=== PATIENT | female | born 1985 | race Caucasian/White ===

== ENCOUNTER 2019-05-14 22:44 | Emergency (ER) | payer MEDICAID, OTHER ==
[2019-05-14] MEDS ORDERED: Sodium Chloride 0.9% 1,000 ML IV ONE (23:18)
[2019-05-14] MEDS ORDERED: Promethazine 12.5 MG in Sodium Chloride 0.9% 50 ML IV STA (23:19)
--- NOTE | 2019-05-14 23:25 | EDM.PDOC ---
ED HPI GENERAL MEDICAL PROBLEM - General Chief Complaint: General Stated Complaint: WALKER Time Seen by Provider: 05/14/19 23:18 Source of Information: Reports: Patient History Limitations: Reports: No Limitations - History of Present Illness INITIAL COMMENTS - FREE TEXT/NARRATIVE: This patient is a 33 year old female that presents to the ER. Patient reports that she is about 6-8 weeks confirmed by blood work by PCP. Patient reports that since last night she has had a headache. Patient reports having bilateral temporal pain that wraps around to the back of the neck. Patient reports that if she takes big deep breaths or coughs, or moves that her head hurts worse. She reports that she took Tylenol at home today and it took pain down some, but not much. She reports that she had a history of migraines when younger, but none since. Patient reports though this does not feel like migraines she had before. She reports with her migraines she got nauseated, vomited, and had to lay down. Patient reports that with this headache she does not have nausea, vomiting, photophobia, phonophobia, and does not describe aura. The patient is alert and oriented. She denies having nec stiffness, cp, soa, abd pain, urinary changes, bowel changes, rashes. Patient denies unilateral weaknesses, dizziness, lightheadedness, confusion. Patient does report for several months having several episodes of dull headaches that she takes Tylenol for at home. Onset: Gradual Onset Date: 05/13/19 Duration: Day(s): (1), Constant Location: Reports: Head, Neck Quality: Reports: Dull, Pressure Severity: Moderate Improves with: Reports: None Worsens with: Reports: None Associated Symptoms: Reports: Headaches. 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 Denies: Vision Change Respiratory: Reports: No Symptoms Cardiovascular: Reports: No Symptoms Endocrine: Reports: No Symptoms GI/Abdominal: Reports: No Symptoms. Denies: Nausea, Vomiting : Reports: No Symptoms Musculoskeletal: Reports: Neck Pain Skin: Reports: No Symptoms Neurological: Reports: Headache. Denies: Confusion, Dizziness, Numbness, Pre- Existing Deficit, Seizure, Syncope, Tingling, Tremors, Trouble Speaking, Difficulty Walking, Weakness, Change in Speech, Gait Disturbance Psychiatric: Reports: No Symptoms Hematologic/Lymphatic: Reports: No Symptoms Immunologic: Reports: No Symptoms ED EXAM, GENERAL - Physical Exam Exam: See Below Exam Limited By: No Limitations General Appearance: Alert, WD/WN, No Apparent Distress Eye Exam: Bilateral Eye: EOMI, PERRL Ears: Normal External Exam, Normal Canal, Hearing Grossly Normal, Normal TMs Ear Exam: Bilateral Ear: Auricle Normal, Canal Normal, TM normal Nose: Normal Inspection, Normal Mucosa, No Blood Throat/Mouth: Normal Inspection, Normal Lips, Normal Teeth, Normal Gums, Normal Oropharynx, Normal Voice, No Airway Compromise Head: Atraumatic, Normocephalic Neck: Normal Inspection, Supple, Non-Tender, Full Range of Motion Respiratory/Chest: No Respiratory Distress, Lungs Clear, Normal Breath Sounds, No Accessory Muscle Use Cardiovascular: Normal Peripheral Pulses, Regular Rate, Rhythm, No Edema, No Gallop, No JVD, No Murmur, No Rub Peripheral Pulses: 2+: Radial (L), Radial (R), Posterior Tibial (L), Posterior Tibial (R) GI/Abdominal: Normal Bowel Sounds, Soft, Non-Tender, No Organomegaly, No Distention, No Abnormal Bruit, No Mass, Pelvis Stable (Female) Exam: Deferred Rectal (Female) Exam: Deferred Back Exam: Normal Inspection, Full Range of Motion Extremities: Normal Inspection, Normal Range of Motion, Non-Tender, No Pedal Edema, Normal Capillary Refill Neurological: Alert, Oriented, CN II-XII Intact, Normal Cognition, Normal Gait, No Motor/Sensory Deficits, Other (Negative Kernigs Sign, Negative Brudzinski Sign. No nuchal rigity. ). No: Confused, Disoriented, Slow to Respond, Unresponsive, Memory Loss Remote Events, Memory Loss Recent Events, Abnormal Gait, Sensory/Motor Deficit Psychiatric: Normal Affect, Normal Mood Skin Exam: Warm, Dry, Intact, Normal Color, No Rash Lymphatic: No Adenopathy Course - Vital Signs Last Recorded V/S: Last Vital Signs Temp 97.2 F 05/14/19 22:51 Pulse 79 05/14/19 22:51 Resp 18 05/14/19 22:51 BP 116/62 05/14/19 22:51 Pulse Ox 98 05/14/19 22:51 - Orders/Labs/Meds Orders: Active Orders 24 hr Category Date Time Status Oxygen Therapy [RC] ASDIRECTED Care 05/14/19 23:20 Active Sodium Chloride 0.9% [Normal Saline] 1,000 ml Med 05/14/19 23:18 Active IV .BOLUS Medication Orders Sodium Chloride (Normal Saline) 1,000 mls @ 1,000 mls/hr IV .BOLUS ONE Stop: 05/15/19 00:17 Last Admin: 05/14/19 23:34 Dose: 1,000 mls/hr Labs: Laboratory Tests 05/14/19 Range/Units 23:20 Urine Color Light yellow (YELLOW) Urine Appearance Slightly cloudy (CLEAR) Urine pH 7.0 (4.5-8.0) Ur Specific [place] 1.015 (1.003-1.020) Urine Protein Negative (NEGATIVE) mg/dL Urine Glucose (UA) Negative (NEGATIVE) mg/dL Urine Ketones Negative (NEGATIVE) mg/dL Urine Occult Blood Negative (NEGATIVE) Urine Nitrite Negative (NEGATIVE) Urine Bilirubin Negative (NEGATIVE) Urine Urobilinogen 0.2 (0.2-1.0) EU/dL Ur Leukocyte Esterase Trace H (NEGATIVE) Urine RBC Not seen (0-5) /HPF Urine WBC 0-5 (0-5) /HPF Ur Epithelial Cells Few H (NOT SEEN) /HPF Urine Bacteria Few H (NOT SEEN) /HPF Meds: Medications Generic Name Dose Route Start Last Admin Trade Name Freq PRN Reason Stop Dose Admin Sodium Chloride 1,000 mls @ 1,000 mls/hr 05/14/19 23:18 05/14/19 23:34 Normal Saline IV 05/15/19 00:17 1,000 mls/hr .BOLUS ONE Administration Discontinued Medications Generic Name Dose Route Start Last Admin Trade Name Joseph PRN Reason Stop Dose Admin Promethazine HCl 12.5 mg/ 50.5 mls @ 100 mls/hr 05/14/19 23:19 05/14/19 23:34 Sodium Chloride IV 05/14/19 23:49 100 mls/hr NOW STA Administration - Re-Assessments/Exams Free Text/Narrative Re-Assessment/Exam: 05/14/19 23:10 Discussed with the patient that she does not have a unilateral headache with any neuro deficits or changes. She does not present like a head bleed, stroke, or brain mass in the ER. Discussed CT head and risk vs benefits and radiation and the fetus. Will not head ct this patient. Discussed treatment options in the ER. Tylenol did not work. Will give IV fluids and Oxygen NC. Discussed giving phenergan and pain medication IV. Discussed Phenergan warning is for third trimester, not the 1st, but risk could result, but minimal. Discussed the pain medication and limited research on the fetus, but risk may there, but minimal. After counseling, the patient would like the antiemetic, but hold on the pain medication at this time and see how she does. Patient also has no fever , no nuchal rigitity, negative bruzinski sign and negative kernigs sign. Therefore, will not do an LP. Discussed this with the patient as well, and she does not want an LP. The patient asked about CBD OIL for her headaches. I referred her to discuss this with her PCP or SLOT ATTENDANT. 05/14/19 23:57 Patient reports that after the fluids, phenergan, and oxygen that her headache is a 2/10. This is significantly improved from a 8/10. Patient reports her pain is more bearable and feels she can tolerate this at home. Also gave her ice pack for pain areas. I will discharge the patient home. She is educated about tension headaches and following up with her PCP. She understands and voices understanding on when to return to the ER. Departure - Departure Time of Disposition: 23:51 Disposition: Home, Self-Care 01 Condition: Fair Clinical Impression: Tension headache - Discharge Information *PRESCRIPTION DRUG MONITORING PROGRAM REVIEWED*: Not Applicable *COPY OF PRESCRIPTION DRUG MONITORING REPORT IN PATIENT [place]UL[place]IMAN: Not Applicable Instructions: Tension Headache, Adult, [id number] Referrals: Amirah Nicolas NP [Primary Care Provider] - Forms: ED Department Discharge Additional Instructions: Followup with your primary care provider Followup with your SLOT ATTENDANT Return to the ER for worsening of condition or any emergent concerns such as fever, vomiting, increase in pain, confusion, weakness on one side of body, unresponsive, or any other concerns Increase fluids Go home and rest in a quiet, cool, dark room AVOID physical stress, emotional stress, to much caffeine, caffeine withdrawal, teeth grinding, jaw clenching, eye straining caused by to much tv or screen time , overexertion, smoking, smoking exposure, bad posture, not enough rest, hunger , anxiety May use cold packs or heat to pain areas to help Tylenol at home for pain - My Orders Last 24 Hours: My Active Orders 05/14/19 23:18 Sodium Chloride 0.9% [Normal Saline] 1,000 ml IV .BOLUS 05/14/19 23:20 Oxygen Therapy [RC] ASDIRECTED - Assessment/Plan Last 24 Hours: My Active Orders 05/14/19 23:18 Sodium Chloride 0.9% [Normal Saline] 1,000 ml IV .BOLUS 05/14/19 23:20 Oxygen Therapy [RC] ASDIRECTED Plan: PLEASE SEE RN NOTE FOR PFSH.
== END 2019-05-15 00:35 | disposition home or self-care (01) ==
LOC: CC.ED 22:44
DX: O26.891 Other specified pregnancy related conditions, first trimester (principal); G44.209 Tension-type headache, unspecified, not intractable; Z3A.01 Less than 8 weeks gestation of pregnancy; Z88.5 Allergy status to narcotic agent; Z87.891 Personal history of nicotine dependence
CPT/HCPCS: 81001; 96365; 99283; J2550; J7030; J7050

== ENCOUNTER 2020-09-10 13:40 | Emergency (ER) | payer MEDICAID ==
[2020-09-10 14:56] LABS: CHLORIDE,CL 102 mEq/L (98-106); SODIUM,NA 139 mEq/L (136-145)
--- NOTE | 2020-09-10 15:26 | EDM.PDOC ---
ED HPI GENERAL MEDICAL PROBLEM - General Chief Complaint: General Stated Complaint: ?covid+ Time Seen by Provider: 09/10/20 14:37 Source of Information: Reports: Patient History Limitations: Reports: No Limitations - History of Present Illness INITIAL COMMENTS - FREE TEXT/NARRATIVE: Marga is a 34 yo female who presents to the ED with c/o cough and shortness of breath. She reports she developed symptoms on Thursday and they have worsened since. She reports she lost her sense of taste/smell yesterday. Reports that today she gets very winded even waling across her house. She does report hx of smoking, very light smoker. Denies any hx of known asthma. Her children were reported as close contacts of Tayaid last week, but otherwise no known exposure. She reports chest tightness, but no chest pain. Has had headache. No other complaints. Onset Date: 09/07/20 Duration: Getting Worse Location: Reports: Chest, Generalized Worsens with: Reports: Movement Context: Reports: Activity Associated Symptoms: Reports: Cough, cough w sputum, Loss of Appetite, Malaise, Shortness of Breath. 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 ED EXAM, GENERAL - Physical Exam Exam: See Below Exam Limited By: No Limitations General Appearance: Alert, WD/WN, No Apparent Distress Eye Exam: Bilateral Eye: EOMI, PERRL Ears: Normal External Exam, Normal Canal, Hearing Grossly Normal, Normal TMs Nose: Normal Inspection, Normal Mucosa, No Blood Throat/Mouth: Normal Inspection, Normal Lips, Normal Teeth, Normal Gums, Normal Oropharynx, Normal Voice, No Airway Compromise Head: Atraumatic, Normocephalic Neck: Normal Inspection, Supple, Non-Tender, Full Range of Motion Respiratory/Chest: No Respiratory Distress, No Accessory Muscle Use, Chest Non- Tender, Decreased Breath Sounds, Wheezing (BLL) Cardiovascular: Normal Peripheral Pulses, Regular Rate, Rhythm, No Edema, No Gallop, No JVD, No Murmur, No Rub GI/Abdominal: Normal Bowel Sounds, Soft, Non-Tender, No Organomegaly, No Distention, No Abnormal Bruit, No Mass Extremities: Normal Inspection, Normal Range of Motion, Non-Tender, Normal Capillary Refill, No Pedal Edema Neurological: Alert, Oriented, CN II-XII Intact, Normal Cognition, Normal Gait, Normal Reflexes, No Motor/Sensory Deficits Psychiatric: Normal Affect, Normal Mood Skin Exam: Warm, Dry, Intact, Normal Color, No Rash Lymphatic: No Adenopathy Course - Vital Signs Last Recorded V/S: Last Vital Signs Temp 96.9 F 09/10/20 14:32 Pulse 76 09/10/20 15:27 Resp 20 09/10/20 14:32 BP 127/80 09/10/20 14:59 Pulse Ox 94 L 09/10/20 15:27 - Orders/Labs/Meds Orders: Active Orders 24 hr Category Date Time Status Chest 2V [CR] Stat Exams 09/10/20 14:31 Taken CORONAVIRUS COVID-19 PCR PHL Routine Lab 09/10/20 14:45 Received Isolation [COMM] Stat Oth 09/10/20 14:30 Active Labs: Laboratory Tests 09/10/20 09/10/20 09/10/20 Range/Units 14:00 14:45 14:45 WBC 7.0 (5.0-10.0) 10^3/uL RBC 4.97 (4.00-5.50) 10^6/uL Hgb 14.9 (12.0-16.0) g/dL Hct 45.0 (37.0-47.0) % MCV 90.5 (82.0-94.0) fL MCH 30.0 (27.0-32.0) pg MCHC 33.1 (33.0-38.0) g/dL RDW Coeff of Mauri 12.9 (11.0-15.0) % Plt Count 219 (150-400) 10^3/uL Neut % (Auto) 59.3 (35-85) % Lymph % (Auto) 19.1 (10-55) % [place] % (Auto) 14.8 (0-16) % Eos % (Auto) 6.4 H (0-5) % Baso % (Auto) 0.4 (0-3) % Neut # (Auto) 4.16 (1.80-7.00) 10^3/uL Lymph # (Auto) 1.34 (1.00-4.80) 10^3/uL [place] # (Auto) 1.04 H (0.00-0.80) 10^3/uL Eos # (Auto) 0.45 (0.00-0.45) 10^3/uL Baso # (Auto) 0.03 10^3/uL D-Dimer, Quantitative 0.22 (0.00-0.50) Sodium (136-145) mEq/L Potassium (3.5-5.0) mEq/L Chloride (98-106) mEq/L Carbon Dioxide (21-32) mmol/L BUN (7-18) mg/dL Creatinine (0.6-1.0) mg/dL Est Cr Clr Drug Dosing mL/min Estimated GFR (MDRD) (>=60) mL/min Glucose (75-99) mg/dL Calcium (8.4-10.1) mg/dL C-Reactive Protein (0.2-0.8) mg/dL SARS CoV-2 RNA Rapid CHARLA Negative (NEGATIVE) 09/10/20 Range/Units 14:45 WBC (5.0-10.0) 10^3/uL RBC (4.00-5.50) 10^6/uL Hgb (12.0-16.0) g/dL Hct (37.0-47.0) % MCV (82.0-94.0) fL MCH (27.0-32.0) pg MCHC (33.0-38.0) g/dL RDW Coeff of Mauri (11.0-15.0) % Plt Count (150-400) 10^3/uL Neut % (Auto) (35-85) % Lymph % (Auto) (10-55) % [place] % (Auto) (0-16) % Eos % (Auto) (0-5) % Baso % (Auto) (0-3) % Neut # (Auto) (1.80-7.00) 10^3/uL Lymph # (Auto) (1.00-4.80) 10^3/uL [place] # (Auto) (0.00-0.80) 10^3/uL Eos # (Auto) (0.00-0.45) 10^3/uL Baso # (Auto) 10^3/uL D-Dimer, Quantitative (0.00-0.50) Sodium 139 (136-145) mEq/L Potassium 4.0 (3.5-5.0) mEq/L Chloride 102 (98-106) mEq/L Carbon Dioxide 29 (21-32) mmol/L BUN 10 (7-18) mg/dL Creatinine 1.0 D (0.6-1.0) mg/dL Est Cr Clr Drug Dosing 75.61 mL/min Estimated GFR (MDRD) > 60 (>=60) mL/min Glucose 90 (75-99) mg/dL Calcium 8.9 (8.4-10.1) mg/dL C-Reactive Protein 3.4 H (0.2-0.8) mg/dL SARS CoV-2 RNA Rapid CHARLA (NEGATIVE) Departure - Departure Time of Disposition: 15:24 Disposition: Home, Self-Care 01 Condition: Good Clinical Impression: Viral bronchitis - Discharge Information *PRESCRIPTION DRUG MONITORING PROGRAM REVIEWED*: Not Applicable *COPY OF PRESCRIPTION DRUG MONITORING REPORT IN PATIENT SLUAIMAN: Not Applicable Instructions: COVID-19 Frequently Asked Questions, COVID-19, Acute Bronchitis, Adult, [place], Prevent the Spread of COVID-19 if You Are Sick - [facility] Referrals: [facility]ouser [Primary Care Provider] - Forms: ED Department Discharge Additional Instructions: - Highly suspect Covid - We will notify you of PCR test results when available - Recommend you and your family quarantine until results available - Rest and push fluids - Tylenol or ibuprofen as needed - May continue cough suppressants/decongestants as needed - Continue taking Vitamin D, Vitamin C, and Zinc - Follow up for any worsening shortness of breath or difficulty breathing Sepsis Event Note (ED) - Evaluation Sepsis Screening Result: No Definite Risk - Focused Exam Vital Signs: Vital Signs Temp Pulse Resp BP Pulse Ox 09/10/20 15:27 76 94 L 09/10/20 14:59 90 127/80 94 L 09/10/20 14:32 96.9 F 86 20 114/76 95 - Problem List & Annotations (1) Viral bronchitis SNOMED Code(s): 11312170 Code(s): J20.8 - ACUTE BRONCHITIS DUE TO OTHER SPECIFIED ORGANISMS Status: Acute - My Orders Last 24 Hours: My Active Orders 09/10/20 14:30 Isolation [COMM] Stat 09/10/20 14:31 Chest 2V [CR] Stat 09/10/20 14:45 CORONAVIRUS COVID-19 PCR PHL Routine - Assessment/Plan Last 24 Hours: My Active Orders 09/10/20 14:30 Isolation [COMM] Stat 09/10/20 14:31 Chest 2V [CR] Stat 09/10/20 14:45 CORONAVIRUS COVID-19 PCR PHL Routine Assessment:: Viral bronchitis Concern for covid 19 Plan: 34 yo female presents to the ED with c/o cough and shortness of breath. Also reports loss of taste/smell starting yesterday. Had O2 sat checked and was 92% with pulse of 136 so was advised to be evaluated. VSS upon presentation to ED with O2 sat 92-95% on RA. Surprisingly, Covid test is negative. I have high clinical concern that patient has Covid, so opted to do send out test as well. Labs otherwise stable. Chest xray negative. She is advised on symptomatic treatment and to follow up for any worsening shortness of breath or respiratory distress. She is discharged home in satisfactory condition.
== END 2020-09-10 15:33 | disposition home or self-care (01) ==
LOC: CC.ED 13:40
DX: J20.8 Acute bronchitis due to other specified organisms (principal); Z87.891 Personal history of nicotine dependence; Z88.5 Allergy status to narcotic agent; Z20.828 Contact with and (suspected) exposure to other viral communicable diseases
CPT/HCPCS: 36415; 71046; 80048; 85025; 85379; 86140; 93005; 99285-25; U0002

== ENCOUNTER 2022-01-18 08:02 | Emergency (ER) | payer MEDICAID | END 2022-01-18 09:09 | disposition home or self-care (01) | LOC: SUPCPDRO 08:02 → CC.ED 08:02 | DX: H66.92 Otitis media, unspecified, left ear (principal); H10.32 Unspecified acute conjunctivitis, left eye; Z88.5 Allergy status to narcotic agent; Z72.0 Tobacco use | CPT/HCPCS: 99283 ==